=== PATIENT | female | born 1955 | race Caucasian/White ===

== ENCOUNTER 2017-05-11 20:23 | Inpatient (IN) | payer MEDICARE ==
[~2017-05-11] VITALS: Ht 154.9 cm; Wt 65.9 kg
--- NOTE | ~2017-05-11 | CON ---
[place], [place] REPORT OF CONSULTATION NAME: ANNE MELTON [facility] #: [id number] UNIT #: [id number] ROOM: 530 DOCTOR: DANIEL ARANA MD BIRTHDATE: [birth year] DOS: 05/12/2017 REASON FOR CONSULTATION: Epigastric pain. HISTORY OF PRESENT ILLNESS: The patient is a 61-year-old woman who has no previously documented history of coronary artery disease. She has had intermittent epigastric pain for the last 4-5 days. She has not had any nausea or vomiting, but she does feel weak and tired. She stated that it began as bronchitis and then settled into her epigastrium. Her symptoms do seem to improve when she has bronchodilator therapy. She has had a minimally productive cough. She denies fevers or chills. PAST MEDICAL HISTORY: Includes: 1. Tobacco abuse. 2. Essential hypertension. 3. Hypertriglyceridemia. 4. Generalized anxiety disorder. 5. Chronic back pain with spinal stenosis and cervical disk disease. 6. No history of stroke or myocardial infarction. MEDICATIONS: Prior to admission, DuoNeb t.i.d. p.r.n., latanoprost eye drops p.r.n., alprazolam 0.5 mg t.i.d., amlodipine 5 mg daily, vitamin D3 5000 units weekly and fenofibrate 134 mg daily. ALLERGIES: The patient lists allergies to ACETAMINOPHEN, AMOXICILLIN, CIPROFLOXACIN, CODEINE and LEVOFLOXACIN. REVIEW OF SYSTEMS: The patient denies diplopia or loss of vision. She denies focal weakness. She denies syncope. She denies nausea or vomiting. She denies fevers, chills, sweats or recent weight change. She has had a cough and dyspnea as noted above. She denies any actual chest pain, although she has epigastric pain. She denies any change in bowel or bladder habits and denies blood in her stool or urine. She denies any peripheral edema on the right, although she does have some swelling and pain in her left leg. She denies any hot or swollen joints and denies polydipsia or polyuria. The remainder of the review of systems is negative except as noted above. SOCIAL HISTORY: The patient is . She does smoke about a pack of cigarettes a day. PHYSICAL EXAMINATION: GENERAL: The patient is a well-nourished white female who is awake, alert and oriented. VITAL SIGNS: Pulse is 60 and regular, blood pressure is 116/62. She is afebrile. She weighs 65.9 kg and has a body mass index of 27.4. HEENT: Normocephalic, atraumatic. Extraocular muscles are intact. Sclerae are clear. Pupils are equal, round and react to light. The oral mucosa is moist. Tongue is midline. NECK: Supple. She has no jugular distention. Carotids are full without bruits. She has no neck or supraclavicular masses. No thyromegaly. [place], [place] REPORT OF CONSULTATION NAME: ANNE MELTON UNIT #: [id number] ROOM: [facility] DOCTOR: DANIEL ARANA MD BIRTHDATE: [birth year] LUNGS: Respirations are unlabored. CHEST: Clear to auscultation and percussion. She has no presacral edema or chest wall tenderness. HEART: Has a regular rhythm. She has a fourth heart sound, but no third heart sound or murmur. The PMI is not displaced. She has no precordial heave, lift or thrill. ABDOMEN: Soft and normally active without masses, organomegaly or bruits. EXTREMITIES: Showed no edema. Peripheral pulses are full and equal bilaterally. LABORATORY DATA: I reviewed her electrocardiogram. She shows sinus rhythm with a single PVC, but no acute ST or T-wave changes. Serial troponin levels have been normal. Laboratory studies do show an elevation in her white count at 12,100. Alkaline phosphatase is mildly elevated at 133. IMPRESSION: Atypical chest pain. The patient has no acute EKG changes or elevation in cardiac biomarkers and her symptoms have lasted several days, making an acute coronary syndrome very unlikely. I think that further evaluation can occur as an outpatient and she may be discharged from my perspective for stress testing next week. In the meantime, she probably should be treated for an apparent bronchitis. Her elevated alkaline phosphatase may prompt evaluation of her gallbladder as well, but I will leave that to Dr. Garcia's judgment. I am making no changes in her medications today. I thank Dr. Garcia and Dr. Villegas for asking our advice regarding the patient's care. DANIEL ARANA MD CM:CONSTR:REPORT OF CONSULTATION 1313 05/13/17 0117 interface ROSE GARCIA MD and GINETTE VILLEGAS MD
--- NOTE | ~2017-05-11 | WRIGHTHP ---
[place], [place] PATIENT HISTORY AND PHYSICAL EXAM NAME: ANNE MELTON UNIT #: [id number] ROOM: 530 DOCTOR: ROSE MARROQUIN MD BIRTHDATE: [birth year] DOS: 05/11/2017 HISTORY OF PRESENT ILLNESS: The patient is a 61-year-old female with a past medical history of: 1. COPD and nicotine smoke dependence. 2. History of chronic headaches. 3. Benign essential hypertension. 4. Cervical spinal stenosis with chronic neck pains. 5. Mixed hyperlipidemia. 6. Generalized anxiety disorder. The patient presented to the Emergency Department with complaints of precordial chest pains off and on and after initial evaluation in the Emergency Department, she was recommended for admission and further management. After admission, the patient is feeling somewhat better. The patient states pain increases with a deep breath. No nausea or diaphoresis. No dizziness or fainting episodes. REVIEW OF SYSTEMS: LUNGS: No increasing shortness of breath or wheezing. GASTROINTESTINAL: No nausea, vomiting, diarrhea or constipation. CARDIOVASCULAR: Complains of occasional chest pains. FAMILY HISTORY: Noncontributory. SOCIAL HISTORY: The patient smokes 1 pack of cigarettes a day. Denies any alcohol or drug abuse. MEDICATIONS: The patient takes latanoprost eye drops, fenofibrate, amlodipine. IMPRESSION AND PLAN: 1. The patient with acute bronchitis with complaints of increased shortness of breath, cough and slight wheezing, being treated with antibiotics and corticosteroids and DuoNeb. 2. Complains of recurrent chest pains, evaluated by Dr. Santos, the gasoline service attendant and he has scheduled her for an outpatient stress test on Monday. Cardiac enzymes have been negative with 3 troponin I levels normal. 3. Benign essential hypertension, being treated and controlled. The patient is on amlodipine. 4. Mixed hyperlipidemia. The patient is on fenofibrate. [place], [place] PATIENT HISTORY AND PHYSICAL EXAM NAME: ANNE MELTON UNIT #: [id number] ROOM: 530 DOCTOR: ROSE MARROQUIN MD BIRTHDATE: [birth year] ROSE MARROQUIN MD CM:HISPHYS:PATIENT HISTORY AND PHYSICAL EXAMINATION [id number] ROSE MARROQUIN MD 05/15/17 0747 interface
--- NOTE | ~2017-05-11 | DS ---
[place], [place] DISCHARGE SUMMARY NAME: ANNE MELTON UNIT #: [id number] ROOM: 530 DOCTOR: ROSE MARROQUIN MD BIRTHDATE: [birth year] DOS: 05/13/2017 DISCHARGE DIAGNOSES: 1. Exacerbation of chronic obstructive pulmonary disease and continued nicotine smoke dependence. 2. Chest pain, musculoskeletal, evaluated by Cardiology. 3. Mixed hyperlipidemia. 4. Benign essential hypertension. 5. Cervical stenosis and chronic neck pain. 6. History of chronic headaches. HOSPITAL COURSE: 1. The patient presented to the Emergency Department at [facility] with complaints of precordial chest pains off and on, increased shortness of breath and cough with continued nicotine smoke dependence. The patient apparently had exacerbation of COPD, which was treated with azithromycin, Solu-Medrol and DuoNebs. The patient does not want to take corticosteroids and antibiotics as an outpatient and says that she will continue her DuoNebs and she has a nebulizer at home. The patient says her breathing has improved and her wheezing and shortness of breath and cough has resolved. 2. Chest pain, probably musculoskeletal. Cardiac enzymes were negative. The patient was seen by manager crisis and recommended outpatient cardiac stress test, which is being scheduled on Monday as an outpatient. 3. Mixed hyperlipidemia, the patient on fenofibrate. 4. Benign essential hypertension, treated and controlled. LABORATORY DATA: Venous Dopplers of the lower extremities, negative for DVT. Normal serum electrolytes. White cell count of 12,000, otherwise, normal CBC. DISCHARGE MANAGEMENT: Latanoprost eyedrops, fenofibrate 145 mg daily, amlodipine 5 mg a day, DuoNeb q.i.d., Xanax 0.5 mg t.i.d. p.r.n. for anxiety. Follow up with PCP on Monday and follow up with Cardiology for stress test on Monday morning. Discussed with nursing staff and the patient in good detail. [place], [place] DISCHARGE SUMMARY NAME: ANNE MELTON UNIT #: [id number] ROOM: 530 DOCTOR: ROSE MARROQUIN MD BIRTHDATE: [birth year] ROSE MARROQUIN MD CM:MARY [id number] ROSE MARROQUIN MD 05/13/17 2009 interface
[~2017-05-11 20:23] MED LIST: ALPRAZOLAM0.5 MG PO; AMLODIPINE BESYL5 MG PO; AUGMENTIN 500 M1 TAB PO; CIPRO500 MG PO; CLARITIN10 MG PO; CORTISPORIN 1%-10 M1 OT; CYMBALTA30 MG; DUONEB 3 MG/3 ML3 M1 INH; FENOFIBRATE MI134 MG PO; MOTRIN800 MG PO; NEBULIZER; PREDNICOT20 MG PO; PREDNISONE5 MG PO; TORADOL10 MG PO; TRAMADOL HCL50 MG PO; XANAX0.5 MG PO; ZITHROMAX Z PA250 MG PO; ZOLOFT50 MG PO
[2017-05-11 20:25] VITALS: BP 157/122
--- NOTE | 2017-05-11 20:39 | NUR ---
2024 PT TAKEN TO EXAM ROOM 8 AND CHEST PAIN PROTOCOL STARTED. BIRGIT BUITRAGO RN.
[2017-05-11 20:45] LABS: BASO % 0.3 % (0.0-1.0); EOS % 0.3 % (1.0-4.0); HEMATOCRIT 44.4 % (37.0-47.0); HEMOGLOBIN 14.8 g/dl (12.0-16.0); LYMPH # 3.9 10*3/uL (1.3-4.4); LYMPH % 32.3 % (27.0-41.0); MEAN CELL VOLUME 90.6 fl (81.0-99.0); MEAN CORPUSCULAR HGB 30.2 pg (27.0-31.0); MEAN CORPUSCULAR HGB CONC 33.3 g/dl (33.0-37.0); MEAN PLATELET VOLUME 9.8 fl (9.6-12.3); MONO # 0.7 10*3/uL (0.1-1.0); NEUT # 7.3 10*3/uL (2.3-7.9); NEUT % 60.8 % (47.0-73.0); PLATELET COUNT AUTOMATED 314 10*3/uL (130-400); RED CELL DISTRI WIDTH 13.3 % (0-14.5); WHITE BLOOD COUNT 12.1 10*3/uL (4.8-10.8)
[2017-05-11 20:55] LABS: ACT PARTIAL THROMBO TIME 25.5 SECONDS (20.8-31.5)
[2017-05-11 21:00] VITALS: BP 134/85
[2017-05-11 21:03] LABS: ALBUMIN 4.2 gm/dl (3.1-4.5); ALKALINE PHOSPHATASE 133 U/L (45-117); BUN 12 mg/dl (7-24); CHLORIDE 105 mmol/L (98-107); CREATININE 0.76 mg/dL (0.55-1.02); MAGNESIUM 2.3 mg/dL (1.5-2.1); POTASSIUM 3.5 mmol/L (3.5-5.1); SGOT/AST 20 IU/L (3-35); SGPT/ALT 32 U/L (12-78); SODIUM 141 mmol/L (136-145); TOTAL PROTEIN 7.9 gm/dL (6.4-8.2)
[2017-05-11 21:05] LABS: TROPONIN I < 0.015 ng/ml (<0.045)
[2017-05-11 21:24] VITALS: BP 141/91
[2017-05-11 22:11] VITALS: BP 127/73
[2017-05-11 23:09] VITALS: BP 125/80
[2017-05-11 23:23] VITALS: BP 134/81
--- NOTE | 2017-05-11 23:37 | NUR ---
PATIENT ADMITTED TO FLOOR FROM ER PATIENT CURRENTLY RESTING IN BED CALL LIGHT IN REACH NO CURRENT COMPLAINT AT THIS TIME.
[2017-05-11] MEDS ORDERED: VITAMIN D50000 UNIT PO (23:42)
[2017-05-11] MEDS ORDERED: LATANOPROST2.5 ML OP (23:43)
--- NOTE | 2017-05-11 23:43 | NUR ---
MEDICATIONS REVIEWED WITH PATIENT MED REC CORRECT
[2017-05-12] VITALS: BP 134/81
[2017-05-12 04:20] VITALS: BP 125/80
--- NOTE | 2017-05-12 05:33 | NUR ---
PATIENT SLEEPING RESP ERNL SEE ASSESSMENT
--- NOTE | 2017-05-12 07:44 | NUR ---
PT RESTING IN BED, PT STATING SHE NEEDS A BREATHING TX. RESP HERE TO GIVE TREATMENT. WILL MONITOR
[2017-05-12 08:00] VITALS: BP 116/62
--- NOTE | 2017-05-12 09:24 | NUR ---
[employer] Hand in to talk to patient. Patient states lives at Home with . There are 0 steps in the home. Physician: paula Pharmacy: [facility] Home health services: no Patient's level of ADLs: INDEPENDENT Patient has working utilities: yes DME: no Follow-up physician's appointment after d/c: self Does patient want to access PORTAL?: no Discharge plan Home, denies any needs at this time. KEELEY CONWAY
[2017-05-12 12:00] VITALS: BP 120/72
[2017-05-12 16:00] VITALS: BP 106/60
--- NOTE | 2017-05-12 17:13 | NUR ---
PT RESTING IN BED. NO DISTRESS NOTED. WILL MONITOR. CALL LIGHT WITHIN REACH
--- NOTE | 2017-05-12 19:30 | NUR ---
PATIENT RESTING IN BED CALL LIGHT IN REACH NO CO AT THIS TIME SEE SHIFT ASSESSMENT
[2017-05-12 20:00] VITALS: BP 110/55
--- NOTE | 2017-05-12 21:03 | NUR ---
PATIENT SLEEPING CALL LIGHT IN REACH RESP NILAY
--- NOTE | 2017-05-12 22:39 | NUR ---
CHART CHECK COMPLETE
[2017-05-13] VITALS: BP 115/50
[2017-05-13 04:00] VITALS: BP 120/62
[2017-05-13 08:00] VITALS: BP 128/82
--- NOTE | 2017-05-13 08:20 | NUR ---
PT RESTING IN BED, NO DISTRESS NOTED. WILL MONITOR . NO VOICED C/O
[2017-05-13 12:00] VITALS: BP 166/90
[2017-05-13 16:00] VITALS: BP 134/78
--- NOTE | 2017-05-13 19:21 | NUR ---
Discharge instructions reviewed with patient/family. Patient receptive and verbalizes understanding. Follow-up care arranged. Written instructions given to patient/family. KULWINDER DUBOSE
--- NOTE | 2017-05-15 08:39 | NUR ---
INFORMATION SHEET GIVEN TO [facility] OFFICE TO HAVE STRESS TEST SET UP.
== END 2017-05-13 19:21 | disposition home or self-care (01) | DRG 192 ==
LOC: ED 20:23 → EDHOLD 22:51 → 5E 22:51
PROVIDERS: Student in an Organized Health Care Education/Training Program; ADMIT Internal Medicine
DX: J44.0 Chronic obstructive pulmonary disease with (acute) lower respiratory infection (principal); M48.02 Spinal stenosis, cervical region; I10 Essential (primary) hypertension; R07.89 Other chest pain; J44.1 Chronic obstructive pulmonary disease with (acute) exacerbation; E78.2 Mixed hyperlipidemia; G89.29 Other chronic pain; M54.2 Cervicalgia; R51 Headache; F17.210 Nicotine dependence, cigarettes, uncomplicated; J20.9 Acute bronchitis, unspecified; F41.1 Generalized anxiety disorder; E78.1 Pure hyperglyceridemia; M54.9 Dorsalgia, unspecified; Z88.1 Allergy status to other antibiotic agents; Z88.6 Allergy status to analgesic agent; Z88.5 Allergy status to narcotic agent

== ENCOUNTER → 2017-05-16 | Outpatient (CLI) | payer MEDICARE ==
[~2017-05-16] MED LIST changes: +LATANOPROST2.5 ML OP; +VITAMIN D50000 UNIT PO
--- NOTE | ~2017-05-16 | ST ---
[place], [place] EXERCISE STRESS TEST REPORT NAME: ANNE MELTON [facility] #: [id number] UNIT #: [id number] ROOM: DOCTOR: DANIEL ARANA MD BIRTHDATE: [birth year] DOS: 05/16/2017 REFERRED BY: Dr. Veronica Villegas. INDICATION: Atypical chest pain. PROCEDURE: The patient received a rapid infusion of regadenoson 0.4 mg intravenously followed by a saline flush. She developed hot flash, headache and nausea along with dyspnea. Symptoms resolved spontaneously. She did have a normal tachycardic heart rate response to the infusion. No diagnostic ST or T-wave changes were seen on the electrocardiogram. Forty seconds after the infusion of regadenoson, the patient was given radionuclide intravenously. IMPRESSION: 1. Well tolerated infusion of regadenoson. 2. Radionuclide administered. Please see the separate imaging report for further details of the patient's stress test results. DANIEL ARANA MD CM:STRESS:EXERCISE STRESS TEST REPORT [id number] DANIEL ARANA MD
--- NOTE | 2017-05-16 09:30 | NUR ---
INFORMED CONSENT OBTAINED FOR LEXISCAN NUCLEAR STRESS TEST WITH DR. ARANA. RESTING EKG NSR WITH OCCASIONAL PVC'S WITH A RESTING HR OF 69 AND BP OF 122/70. LUNGS WITH DIMINISHED BS WITH SPO2 OF 97% ON ROOM AIR. PT COMPLETED A 1:00 LEXISCAN PROTOCOL RECEIVING LEXISCAN 0.4 MG IV OVER 10 SECONDS. HAD NO CHEST PAIN OR ANY EKG CHANGES. DID C/O FEELING SHORTNESS OF BREATH, HOT FEELING, HEADACHE, NAUSEA AND BELLY CRAMPING THAT WAS RELIEVED IN RECOVERY. HAD A PEAK HR OF 128 WITH BP OF 110/68. LAST RECOVERY HR 108 WITH BP OF 112/72. AWAITING SCANNING IN STABLE CONDITION.
== END | disposition home or self-care (01) ==
LOC: CARD 03:31
DX: R07.9 Chest pain, unspecified (principal); R53.81 Other malaise

== ENCOUNTER 2018-01-13 21:30 | Emergency (ER) | payer MEDICARE, MEDICAID ==
[~2018-01-13] VITALS: Ht 152.4 cm; Wt 69.4 kg
[2018-01-13] MEDS ORDERED: DELTASONE20 M1 PO ×2 (23:41→23:43)
[2018-01-13 23:46] VITALS: BP 142/67
== END 2018-01-14 00:29 | disposition home or self-care (01) ==
LOC: ED 21:30
DX: R07.81 Pleurodynia (principal); R05 Cough; F17.200 Nicotine dependence, unspecified, uncomplicated; J44.9 Chronic obstructive pulmonary disease, unspecified; Z98.51 Tubal ligation status; Z79.899 Other long term (current) drug therapy; Z88.6 Allergy status to analgesic agent; Z88.1 Allergy status to other antibiotic agents; Z88.5 Allergy status to narcotic agent

== ENCOUNTER 2018-01-16 13:44 | Inpatient (IN) | payer MEDICARE, MEDICAID ==
[~2018-01-16] VITALS: Ht 152.4 cm; Wt 66.0 kg
--- NOTE | ~2018-01-16 | PR ---
[place], [place] PROGRESS NOTE [id number] UN[facility] #: [id number] ROOM: 531 DOCTOR: MITA SANDERS MD,JACKELIN BIRTHDATE: [birth year] DOS: 01/19/2018 SUBJECTIVE: The patient noted without any acute new respiratory complaints at this time. Hemoptysis has resolved and no symptoms of chest pain. The culture of bronchial washing noted with normal oralia. OBJECTIVE: VITAL SIGNS: This morning, normal temperature, respiratory rate 20, heart rate 81, blood pressure 142/80. Pulse oxygen saturation of the patient on room air 96% saturation. HEENT: Head atraumatic. Eyes nonicterus. NECK: Supple. CARDIOVASCULAR: S1, S2 audible. LUNGS: Without any wheeze or crackles. ABDOMEN: Soft, nontender. EXTREMITIES: No acute edema. IMPRESSION: Resolution of the hemoptysis, related to acute bronchitis, normal oralia on cultures were noted on the patient's bronchial washings. PLAN OF TREATMENT: The patient could be discharged home at this time to be followed up in the office for further additional assessment. Other supportive therapy and plan of management as well. Usual care. JACKELIN FAN MD CM:PNTRANS [id number] JACKELIN SANDERS MD 01/20/18 0711 interface
--- NOTE | ~2018-01-16 | DS ---
[place], [place] DISCHARGE SUMMARY NAME: ANNE MELTON [facility] #: [id number] UNIT #: [id number] ROOM: 531 DOCTOR: GINETTE BARTON MD BIRTHDATE: [birth year] DOS: 01/19/2018 DIAGNOSES: 1. Hemoptysis, resolved. 2. Bronchoscopy without any mucosal lesions. Bronch cultures negative. 3. Chronic obstructive pulmonary disease with exacerbation. 4. Moderate cigarette smoking. 5. Generalized anxiety disorder. 6. Chronic neck pain with cervical spine stenosis. MEDICATIONS: Same as in admission. Only new prescription given was tapering dose of prednisone 5 mg twice a day for 10 days and then Ceftin 250 twice daily for 5 days. HOSPITAL COURSE: The patient is 62 years old, comes in with complaints of hemoptysis. She was coughing up copious amounts of bloody mucus. After being brought to the Emergency Room, a CT of the chest was done, which did not show any malignancy. The patient was admitted and placed on IV steroids and antibiotics. Dr. Portillo was consulted. A bronchoscopy was performed. After the bronch and cleansing, the bronch cultures have come back negative. She does not have any more hemoptysis. COPD remains fairly stable. The patient is therefore stable and improved and the plan is to discharge her to home today to follow up as an outpatient. The patient is encouraged to quit smoking. GINETTE BARTON MD CM:DISCHARG [phone] GINETTE BARTON MD 01/19/18 0934 interface
--- NOTE | ~2018-01-16 | CON ---
[place], [place] REPORT OF CONSULTATION NAME: ANNE MELTON [facility] #: [id number] UNIT #: [id number] ROOM: 503 DOCTOR: MITA SANDERS MDJACKELIN BIRTHDATE: [birth year] DOS: 01/17/2018 PULMONARY CONSULTATION, EVALUATION, AND MANAGEMENT REASON FOR CONSULTATION: To assess the patient for hemoptysis. CONSULTATION REQUESTED: Veronica Villegas MD. HISTORY OF PRESENT ILLNESS: This is a 62-year-old white female patient who has been seen in the Emergency Room previously and then later on admitted to the hospital on 01/16/2018. She started with having symptoms of increased chest congestion and reported with symptoms of hemoptysis and sputum expectoration recently. The episodes for the patient has been noted ongoing for the past 7 days, which has been noted including hemoptysis described by the patient, initially blood-tinged sputum. The patient has expectorated some hemoptysis this morning and also had some clotted blood noted in it. However, the quantity was noted small for this patient less than a teaspoon full. The symptoms have been noted intermittently. She denies symptoms of postnasal drainage. She does have some symptoms of shortness of breath. Denies symptoms of any chest pain. She does have some wheezing history as well. REVIEW OF SYSTEMS: CONSTITUTIONAL: Fatigue, tiredness without fever or chills. EYES: Denies any burning, redness, or tenderness. EARS, NOSE, THROAT SYMPTOMS: Denies sore throat, hoarseness, otalgia, postnasal drainage. CARDIOVASCULAR: No anginal pain, edema, pain in the lower extremities. GASTROINTESTINAL: No dysphagia, nausea, vomiting, diarrhea, abdominal pain, hematemesis, melena, or hematochezia. GENITOURINARY: No dysuria, suprapubic pain, or hematuria. MUSCULOSKELETAL: Without any acute deformities. SKIN: Denies abnormal lesions or rashes. CENTRAL NERVOUS SYSTEM: The patient was noted without any deficit. Remaining systems were reviewed. They were noted all negative. PAST MEDICAL HISTORY: Known with history of: 1. Bronchial asthma. 2. COPD. 3. General anxiety disorder. 4. Lower back pain. 5. History of spinal stenosis. 6. Intervertebral disc disease. SOCIAL HISTORY: The patient is , has no children, lives at home. She has noted tobacco use as a teenager about a pack of cigarettes per day. Denies history of alcohol use or any illicit drugs use. SURGICAL HISTORY: Noted as tubal ligation. [place], [place] REPORT OF CONSULTATION NAME: ANNE MELTON UNIT #: [id number] ROOM: [facility] DOCTOR: MITA SANDERS MD,JACKELIN BIRTHDATE: [birth year] FAMILY HISTORY: Reported for cancer, CVA, coronary artery disease, cerebral hemorrhage and hypertension. CURRENT MEDICATIONS: Administered noted use of Latanoprost eye drops, amlodipine, Mucinex 600 mg p.o. b.i.d., Solu-Medrol 30 mg q.i.d., DuoNeb q.4 hours, IV Rocephin, and other p.r.n. medications. DRUG ALLERGIES: The patient noted allergies: 1. CODEINE. 2. TYLENOL. 3. CIPRO. 4. AMOXICILLIN. 5. LEVAQUIN. PHYSICAL EXAMINATION: GENERAL: A 62-year-old female who has been noted currently awake and alert without distress. Height of 5 feet. The weight of 145 pounds. BMI 28. VITAL SIGNS: Normal temperature, respiratory rate 14-16, heart rate of 68-104. Blood pressure 130/75-164/102. Pulse oxygen saturation of the patient recorded on room air is 95% saturation. HEENT: Head was atraumatic. Eyes nonicterus. Nasal mucosa without any polyps. Mild deviated nasal septum noted to the left. There was no active bleeding. NECK: Supple. CARDIOVASCULAR: S1, S2 is audible. No added sounds. LUNGS: Noted moderate decreased breath sounds, scattered expiratory wheezing, no crackles. ABDOMEN: Soft, nontender, bowel sounds present with mild obesity. It was nontender. EXTREMITIES: Noted without acute edema, clubbing, cyanosis. CENTRAL NERVOUS SYSTEM: Cranial nerves 2-12 intact. MUSCULOSKELETAL: Without any acute deformities. LABORATORY DATA: CBC yesterday for the patient noted as CBC completely normal. The lactic acid noted normal yesterday as well. CMP that was done yesterday, normal BUN, creatinine and LFTs except alkaline phosphatase minimally elevated at 175. CT scan of head was also done for the patient on 01/16/2018 was noted, no acute intracranial pathologies. CT scan of the chest was reviewed for the changes consistent with centrilobular emphysema changes for the patient were noted without any pulmonary nodules, lymphadenopathy or other abnormalities. IMPRESSION: 1. The patient who has been currently admitted to the hospital noted with hemoptysis which is unexplained. The CT scan of the chest was noted negative without any lung masses or other lesions. The possible consideration for the patient related to acute exacerbation of chronic obstructive pulmonary disease noted with acute bronchitis resulting in bleeding. I did rule out the pseudohemoptysis as well. 2. The patient with a history of nicotine abuse previously as well. 3. Acute anxiety disorder. [place], [place] REPORT OF CONSULTATION NAME: ANNE MELTON UNIT #: [id number] ROOM: 503 DOCTOR: MITA SANDERS MD,JACKELIN BIRTHDATE: [birth year] PLAN OF MANAGEMENT: Proceed with fibrobronchoscopy ____ and acute bronchitis and Solu-Medrol for the management of current acute exacerbation of chronic obstructive pulmonary disease, abstain from any tobacco use. Based on the assessment for the patient, further intervention could be ordered for any additional assessment after bronchoscopy. The assessment and management discussed with Dr. Veronica Villegas. The patient already kept n.p.o. past midnight from midnight. Proceed with the bronchoscopy. Informed consent was obtained for the patient. The assessment and management was also discussed with the patient's personally. JACKELIN FAN MD CM:CONSTR:REPORT OF CONSULTATION 1049 01/17/181951 interface
--- NOTE | ~2018-01-16 | WRIGHTHP ---
[place], [place] PATIENT HISTORY AND PHYSICAL EXAM NAME: ANNE MELTON [facility] #: [id number] UNIT #: [id number] ROOM: 503 DOCTOR: GINETTE BARTON MD BIRTHDATE: [birth year] DOS: 01/17/2018 HISTORY OF PRESENT ILLNESS: The patient is 62 years old. The patient has been coughing up blood since last Monday. She was seen in the Emergency Room on the and had an x-ray done, which was negative, so she was sent home. She came to see me on Monday morning. The patient was ordered a CT of the chest which was scheduled but by Monday, the patient continued to cough up blood and so was brought to the Emergency Room again. She denies having any chest pains or palpitations, does not have any fever or chills, does not have any abdominal pain, any nausea, any emesis. PAST MEDICAL HISTORY: Significant for: 1. COPD. 2. Moderate cigarette smoker. 3. Generalized anxiety disorder. 4. Chronic neck pain with cervical spinal stenosis. MEDICATIONS: She is currently on are breathing treatments, latanoprost eyedrops, Xanax 0.5 t.i.d., Amlodipine 10 daily. SOCIAL HISTORY: Smoker of about half a pack of cigarettes a day. Denies using any alcohol. Lives at home. PHYSICAL EXAMINATION: GENERAL: The patient is awake and alert and oriented. VITAL SIGNS: Graphic trend shows a pressure of 136/68, pulse of 59, respirations 14, temperature 97.3. LUNGS: Diminished breath sounds. No wheezes, rales, rhonchi heard. HEART: Regular. ABDOMEN: Obese, soft, nontender. EXTREMITIES: Without any edema. ASSESSMENT AND PLAN: 1. Hemoptysis with no evidence of any lesions on the CT scan. Dr. Portillo has been consulted for bronchoscopy. 2. Chronic obstructive pulmonary disease with moderate cigarette smoking. Advised against smoking. The patient was on steroids and antibiotics, which can be cut back since she does not have any current exacerbation of chronic obstructive pulmonary disease. 3. Generalized anxiety disorder. Continue home meds. 4. Benign hypertension, controlled. [place], [place] PATIENT HISTORY AND PHYSICAL EXAM [facility]: [id number] UN[facility] #: [id number] ROOM: 503 DOCTOR: GINETTE BARTON MD BIRTHDATE: [birth year] GINETTE BARTON MD CM:HISPHYS:PATIENT HISTORY AND PHYSICAL EXAMINATION [phone] GINETTE BARTON MD 01/17/18 1553 interface
--- NOTE | ~2018-01-16 | PR ---
[place], [place] PROGRESS NOTE NAME: [facility] [id number] UNIT #: [id number] ROOM: 531 DOCTOR: GINETTE BARTON MD BIRTHDATE: [birth year] DOS: 01/18/2018 SUBJECTIVE: The patient appears quite anxious, upset about the neighbor in the same room, also the lady next door. The patient states that she did not sleep. Hemoptysis seems to be resolving. Appreciate Dr. Portillo's input. OBJECTIVE: VITAL SIGNS: Graphic trend shows a pressure of 132/68, pulse of 78, respirations 20, temperature 98.0. LUNGS: Diminished breath sounds, clear. HEART: Regular. ABDOMEN: Soft. EXTREMITIES: Without any edema. ASSESSMENT AND PLAN: 1. Hemoptysis ____ negative CT of the chest. Bronchoscopy showed superficial bleeding, which seems to have subsided. We are awaiting the bronch cultures, after that is available and if negative, the plan is to discharge her to home. 2. Chronic obstructive pulmonary disease with moderate cigarette smoking. Advised smoking cessation. 3. Generalized anxiety disorder. Discussed with nursing staff about moving the patient to another room. GINETTE BARTON MD CM:PNTRANS [id number] GINETTE BARTON MD 01/18/18 1235 interface
--- NOTE | ~2018-01-16 | PR ---
[place], [place] PROGRESS NOTE [id number] UNIT #: [id number] ROOM: 531 DOCTOR: MITA SANDERS MD,JACKELIN BIRTHDATE: [birth year] DOS: 01/18/2018 SUBJECTIVE: The patient noted comfortable, has been noted with improvement and resolution of the hemoptysis. She denies symptoms of chest pain. Coughing has been improving. The bronchoscopy completed yesterday. There were no endobronchial lesions noted or any active bleeding. OBJECTIVE: VITAL SIGNS: Showed normal temperature, respiratory rate 20, heart rate 84, blood pressure 140-88, 132/68. The pulse oxygen saturation of the patient recorded as 95% saturation on room air. HEAD, EYES, EARS, NOSE, AND THROAT: Showed no acute change. NECK: Supple. CARDIOVASCULAR: S1, S2 audible. LUNGS: Noted without any wheezing or crackles present time. Auscultation noted clear. ABDOMEN: Soft, nontender. Bowel sounds present. EXTREMITIES: Without any acute edema. LABORATORY DATA: The bronchial washing culture preliminary noted as normal oralia. The Gram stain was noted with the rare white blood cells, epithelial cells, gram-positive cocci in pairs. IMPRESSION: Resolving hemoptysis. The patient without any bronchial lesion, possibility of bronchitis was suspected in the left side with bleeding from the superficial mucosa. The CT scan does not show any mass lesion or other abnormalities. The patient with COPD. PLAN OF MANAGEMENT: Continuation of current therapy, plan of management is previously in progress. Usual care and other supportive plan of management and therapies. JACKELIN FAN MD CM:PNTRANS [id number] JACKELIN SANDERS MD 01/18/18 1019 interface
--- NOTE | ~2018-01-16 | EKG ---
[place], [place] ELECTROCARDIOGRAM REPORT NAME: ANNE MELTON UNIT #: [id number] ROOM: [facility] DOCTOR: MITA SANDERS MD,JACKELIN BIRTHDATE: [birth year] DOS: 01/16/2018 ELECTROCARDIOGRAM TIME: 2:19 p.m. Normal sinus rhythm noted. Heart rate of 92 beats per minute. There were no abnormal electrocardiogram changes noted. JACKELIN FAN MD CM:EKGRPT:ELECTROCARDIOGRAM REPORT [id number] JACKELIN SANDERS MD
--- NOTE | ~2018-01-16 | PROC NOTE ---
[place], [place] PROCEDURE NOTE NAME[id number] UNIT #: [id number] ROOM: 503 DOCTOR: MITA SANDERS MD,JACKELIN BIRTHDATE: [birth year] DOS: 01/17/2018 PREOPERATIVE DIAGNOSES: The patient with unexplained hemoptysis. POSTOPERATIVE DIAGNOSES: There were no endobronchial lesions noted. Possible bleeding are noted from the left upper lobe and lingular subsegment would be considered. Some secretions containing blood was noted in that area. There was no active bleeding identified. PROCEDURE DESCRIPTION: Informed consent obtained for the patient. She was brought to the OR and placed in supine position. Conscious sedation administered by the Anesthesia Department. After that, the bronchoscope advanced to the airway into the laryngeal area. Epiglottis and vocal were seen. Vocal cords moving symmetrically with movements. There was no blood present in the larynx. All the laryngeal structure appeared to be normal. Nasal examination was also done that was noted without any evidence of bleeding with some deviation of nasal septum towards the left. The bronchoscope advanced to the vocal cord, which was noted ____ in color, moving symmetrically with movements. The tracheal lumen was entered. Small amount of mucus was present containing blood secretion noted in the lower part of trachea, which was suctioned out. Right upper, right middle, right lower lobe opening were all noted clear of any abnormalities. Bronchial washing taken from all the bronchial openings. The left main stem bronchus was noted with similar secretions ____ in the lower part of the trachea with minimal bleeding makes a small amount of mucus. Appears to be some superficial area for the previous bleeding were noted in the area of the left upper lobe and the lingula. All secretions suctioned out clear with normal saline wash. There was no endobronchial lesion noted. All the endobronchial tree was inspected carefully. The area of the left upper lingula lavaged with 1:10,000 epinephrine diluted. There was no bleeding noted. The bronchoscope withdrawn. The postoperative findings were discussed with the patient's and Dr. Veronica Villegas. No intervention acutely will be needed. The bronchial washing sent for all the cultures as well as for the cytology. JACKELIN FAN MD CM:PROCNOTE:PROCEDURE NOTE [id number] JACKELIN SANDERS MD
--- NOTE | ~2018-01-16 | PR ---
[place], [place] PROGRESS NOTE NAME: ANNE MELTON [facility] #: [id number] UNIT #: [id number] ROOM: 531 DOCTOR: GINETTE BARTON MD BIRTHDATE: [birth year] DOS: 01/19/2018 SUBJECTIVE: The patient is not having any complaints today. She slept good. OBJECTIVE: VITAL SIGNS: Blood pressure is 128/71, pulse of 65, respirations 18, temperature 97.8. LUNGS: Clear. HEART: Regular. ABDOMEN: Soft. EXTREMITIES: Without any edema. LABORATORY DATA: Routine culture shows normal oralia. Sputum and blood cultures were negative. ASSESSMENT AND PLAN: 1. Hemoptysis, possibly from a superficial bleeding. Dr. Portillo did do a bronchoscopy. No mucosal lesions were noted. A CT was negative and bronch cultures so far are negative. 2. Chronic obstructive pulmonary disease with mild exacerbation, stable and without any new problems. The plan is to discharge to home today. GINETTE BARTON MD CM:PNTRANS [id number] GINETTE BARTON MD 01/19/18 0950 interface
[2018-01-16 13:44] VITALS: BP 123/89
[~2018-01-16 13:44] MED LIST changes: +DELTASONE20 M1 PO
[2018-01-16 14:33] LABS: BASO % 0.3 % (0.0-1.0); EOS % 0.4 % (1.0-4.0); HEMATOCRIT 47.6 % (37.0-47.0); HEMOGLOBIN 15.3 g/dl (12.0-16.0); LYMPH # 2.9 10*3/uL (1.3-4.4); LYMPH % 27.4 % (27.0-41.0); MEAN CELL VOLUME 92.8 fl (81.0-99.0); MEAN CORPUSCULAR HGB 29.8 pg (27.0-31.0); MEAN CORPUSCULAR HGB CONC 32.1 g/dl (33.0-37.0); MEAN PLATELET VOLUME 9.4 fl (9.6-12.3); MONO # 0.8 10*3/uL (0.1-1.0); MONO % 7.3 % (3.0-9.0); NEUT # 6.7 10*3/uL (2.3-7.9); NEUT % 64.4 % (47.0-73.0); PLATELET COUNT AUTOMATED 277 10*3/uL (130-400); RED BLOOD COUNT 5.13 10*6/uL (4.10-5.10); RED CELL DISTRI WIDTH 13.9 % (0-14.5); WHITE BLOOD COUNT 10.5 10*3/uL (4.8-10.8)
[2018-01-16 14:52] LABS: ALBUMIN 4.1 gm/dl (3.1-4.5); ALKALINE PHOSPHATASE 179 U/L (45-117); BUN 16 mg/dl (7-24); CHLORIDE 104 mmol/L (98-107); CREATININE 0.77 mg/dL (0.55-1.02); POTASSIUM 3.8 mmol/L (3.5-5.1); SGOT/AST 20 IU/L (3-35); SGPT/ALT 26 U/L (12-78); SODIUM 139 mmol/L (136-145); TOTAL PROTEIN 7.7 gm/dL (6.4-8.2); TROPONIN I < 0.015 ng/ml (<0.045)
[2018-01-16 15:30] VITALS: BP 118/78
[2018-01-16 17:48] VITALS: BP 126/78
[2018-01-16 19:00] VITALS: BP 139/76
[2018-01-17] VITALS (8 sets, daily range): BP systolic 117–143; BP diastolic 68–80
[2018-01-18 00:03] VITALS: BP 132/68
[2018-01-18 08:00] VITALS: BP 142/88
[2018-01-18 12:00] VITALS: BP 115/49
[2018-01-18 15:08] LABS: ACID FAST SPEC PROCESSING Concentration (.)
[2018-01-18 16:00] VITALS: BP 123/81
[2018-01-18 20:00] VITALS: BP 147/80
[2018-01-19] VITALS: BP 128/71
[2018-01-19] MEDS ORDERED: PREDNISONE5 MG PO (08:49)
[2018-01-19] MEDS ORDERED: CEFUROXIME AXE250 MG PO (08:49)
[2018-01-19 09:47] VITALS: BP 142/80
== END 2018-01-19 09:48 | disposition home or self-care (01) | DRG 191 ==
LOC: ED 13:44 → EDHOLD 18:32 → 5E 18:32
PROVIDERS: Internal Medicine Critical Care Medicine; Student in an Organized Health Care Education/Training Program
DX: J44.0 Chronic obstructive pulmonary disease with (acute) lower respiratory infection (principal); R04.2 Hemoptysis; M48.02 Spinal stenosis, cervical region; J44.1 Chronic obstructive pulmonary disease with (acute) exacerbation; J20.9 Acute bronchitis, unspecified; F41.1 Generalized anxiety disorder; G89.29 Other chronic pain; M54.2 Cervicalgia; F17.210 Nicotine dependence, cigarettes, uncomplicated; I10 Essential (primary) hypertension; Z98.51 Tubal ligation status; Z88.6 Allergy status to analgesic agent; Z88.1 Allergy status to other antibiotic agents; Z88.8 Allergy status to other drugs, medicaments and biological substances; Z80.9 Family history of malignant neoplasm, unspecified; Z82.3 Family history of stroke; Z82.49 Family history of ischemic heart disease and other diseases of the circulatory system; Z79.899 Other long term (current) drug therapy

== ENCOUNTER → 2018-06-14 | Outpatient (CLI) | payer MEDICARE, OTHER ==
[~2018-06-14] MED LIST changes: +CEFUROXIME AXE250 MG PO
== END | disposition home or self-care (01) ==
LOC: RAD 17:13
DX: R07.81 Pleurodynia (principal); R06.02 Shortness of breath

== ENCOUNTER → 2018-07-02 | Outpatient (CLI) | payer MEDICARE, OTHER | END | disposition home or self-care (01) | LOC: US 10:00 | DX: K76.0 Fatty (change of) liver, not elsewhere classified (principal) ==

== ENCOUNTER → 2018-10-11 | Outpatient (CLI) | payer MEDICARE, OTHER ==
[~2018-10-11] MED LIST changes: +ZOCOR10 MG PO
== END | disposition home or self-care (01) ==
LOC: RAD 12:36
DX: R06.02 Shortness of breath (principal); Z91.81 History of falling

== ENCOUNTER → 2019-03-28 | Outpatient (CLI) | payer MEDICARE, OTHER | END | disposition home or self-care (01) | LOC: MAMMO 09:04 | DX: Z12.31 Encounter for screening mammogram for malignant neoplasm of breast (principal); I25.10 Atherosclerotic heart disease of native coronary artery without angina pectoris ==

== ENCOUNTER → 2020-05-15 | Outpatient (CLI) | payer MEDICARE, OTHER ==
[2020-05-16 05:08] LABS: ALKALINE PHOSPHATASE, SERUM 182 IU/L (39-117)
== END | disposition home or self-care (01) ==
LOC: LAB 11:14
PROVIDERS: ATTEND Internal Medicine Gastroenterology
DX: R74.8 Abnormal levels of other serum enzymes (principal)

== ENCOUNTER → 2021-06-30 | Outpatient (CLI) | payer MEDICARE, OTHER | END | disposition home or self-care (01) | LOC: MAMMO 02:24 | PROVIDERS: ATTEND Internal Medicine | DX: Z12.31 Encounter for screening mammogram for malignant neoplasm of breast (principal); Z13.820 Encounter for screening for osteoporosis; Z78.0 Asymptomatic menopausal state ==

== ENCOUNTER → 2022-07-01 | Outpatient (CLI) | payer MEDICARE, OTHER | END | disposition home or self-care (01) | LOC: CARD 02:02 | PROVIDERS: ATTEND Internal Medicine | DX: R94.39 Abnormal result of other cardiovascular function study (principal); I10 Essential (primary) hypertension; R07.9 Chest pain, unspecified ==

== ENCOUNTER → 2022-07-28 | Outpatient (CLI) | payer MEDICARE, OTHER ==
[~2022-07-28] MED LIST changes: +RANOLAZINE ER500 MG PO
== END | disposition home or self-care (01) ==
LOC: US 08:58
PROVIDERS: ATTEND Internal Medicine Cardiovascular Disease
DX: I65.23 Occlusion and stenosis of bilateral carotid arteries (principal)

== ENCOUNTER → 2022-12-20 | Outpatient (CLI) | payer MEDICARE, OTHER | END | disposition home or self-care (01) | LOC: MRI 01:00 | PROVIDERS: ATTEND Internal Medicine | DX: R51.9 Headache, unspecified (principal); I10 Essential (primary) hypertension ==